=== PATIENT | male | born 1995 | race Caucasian/White ===

== ENCOUNTER 2023-01-23 23:26 | Emergency (ER) | payer SELFPAY ==
[2023-01-23 23:32] VITALS: BP 122/79; PULSE 88; RESP 14; TEMP 36.7; O2SAT 95; BMI 27.5
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
[2023-01-24] MEDS: tetanus-dipt-pertussis 0.5 mL SDV IM (00:10)
[2023-01-24] MEDS: amoxicillin-clav 875-125 mg Tablet 1 TAB PO (00:15)
[2023-01-24] MEDS: lidocaine 1% INJ 10 mL (per mL) INJECTION (00:19)
[2023-01-24] MEDS: bacitracin ointment Pkt 1 EACH TOPICAL (00:53)
[2023-01-24] MEDS: HYDROcodone-acetaminophen 5-325 mg Tablet 2 TAB PO (01:05)
[2023-01-24 01:08] VITALS: BP 152/91; PULSE 75; RESP 18; O2SAT 99
--- NOTE | 2023-01-24 08:14 | DCPLANNER ---
Addendum entered by Batsheva Emmanuel 02/05/23 08:15: Patient had a follow up appointment scheduled with ENT - patient did attend appointment. Addendum entered by Batsheva Emmanuel 02/02/23 11:29: Patient has a follow up appointment scheduled for Friday, February 03, 2023 at 12:[address] Johnson at ENT. Addendum entered by Batsheva Emmanuel 01/31/23 10:38: field party manager received the following message from ENT regarding follow up appointment: shashi Original Note: field party manager had message to schedule a follow up appointment for patient with ENT. field party manager sent patients information to the front office staff at ENT. Patients information will be printed and reviewed. Clinic will call patient with appointment information.
--- NOTE | 2023-01-24 08:52 | DCPLANNER ---
guest house manager called patient due to no primary care physician - no answer at this time.
== END 2023-01-24 01:11 | disposition home or self-care (01) ==
PROVIDERS: Emergency Provider Nurse Practitioner Family
DX: S01.312A Laceration without foreign body of left ear, initial encounter (principal); S01.01XA Laceration without foreign body of scalp, initial encounter; Y04.1XXA Assault by human bite, initial encounter
CPT/HCPCS: 90471; 90715; 99284

== ENCOUNTER 2024-02-27 17:14 | Emergency (ER) | payer MEDICAID, SELFPAY ==
[2024-02-27 17:15] VITALS: BP 135/87; PULSE 79; RESP 14; TEMP 36.9; O2SAT 97
--- NOTE | 2024-02-27 17:31 | ED_ITS ---
Documented by User: [email or web address] Estrada 02/27/24 23:54 HPI - Dental/Oral General: Chief complaint: Dental/Oral Stated complaint: Left side tooth pain Time Seen by Provider: 02/27/24 17:17 Source: patient Mode of arrival: ambulatory Limitations: no limitations History of Present Illness: Patient is a 28-year-old male who presents to the emergency department complaining of left upper dental pain onset 3 days. Patient reports history of multiple caries and dental abscess, states this feels identical. He has a dentist appointment scheduled for the end of the month but states that the pain is too severe to make it there. Pain is worsened by cold liquids and palpation of the face. Also made worse by chewing. Pain has been constant and is noted to be severe. He has not tried any pain medications at home at this time. No other symptoms or concerning historical factors noted at this time. MD Complaint: tooth pain Onset (ago): day(s) Duration: constant Severity: severe Relieving factors: nothing Exacerbating factors: chewing and cold Context: history of dental caries and poor dental care Associated symptoms: Denies ear or mastoid pain or fever(s) Review of Systems General: Reports: 10 or more systems reviewed and unremarkable except in HPI and below Const: Denies: fever(s), chills or fatigue Eyes: Denies: change in vision ENMT: Reports: dental pain; Denies: throat pain, ear or mastoid pain or nasal discharge Card: Denies: chest pain, palpitations, swelling of feet/ankles or lightheadedness Resp: Denies: dyspnea, productive cough or wheezing GI: Denies: abdominal pain, nausea, vomiting, diarrhea or constipation : Denies: flank pain, difficulty urinating, dysuria or urinary frequency Musc: Denies: neck pain, back pain or joint pain Skin/Breast: Denies: rash Neuro: Denies: headache(s), numbness in extremities or weakness in extremities PFSH ED PFSH: Surgical History Hx of appendectomy Physical Exam Const: COMMON NORMALS: no acute distress and no limitations GENERAL APPEARANCE: cooperative, comfortable and well developed ORIENTAT ION/CONSCIOUSNESS: Yes awake HENMT: COMMON NORMALS: normocephalic, atraumatic and hearing grossly normal bilaterally HEAD & SCALP: normocephalic and atraumatic TEETH & GINGIVA: Yes abnormal tooth and associated gingiva upper left tender and with associated gingival edema, Yes caries, Yes multiple restorations and Yes poor dentition OTHER: Reproducible tenderness to palpation of patient's left maxillary region, no significant edema noted Eye: COMMON NORMALS: Equal, round and reactive pupils present, EOMs intact bilaterally and conjunctivae normal CONJUNCTIVA: Yes conjunctivae normal PUPIL: Yes Equal, round and reactive pupils present Neck/C-Spine: COMMON NORMALS: full ROM, supple and no JVD Resp: COMMON NORMALS: normal respiratory effort, No retractions, No use of accessory muscles and clear to auscultation bilaterally AUSCULTATION: clear to auscultation bilaterally Cardio: COMMON NORMALS: no JVD, regular rate, regular rhythm, No clicks present (Cardio), No murmurs present (Cardio) and No rub (Cardio) RATE: regular rate RHYTHM: regular rhythm Extremity: COMMON NORMALS: normal to inspection, full ROM and capillary refill normal Skin: COMMON NORMALS: no rashes or lesions noted GENERAL SKIN EXAM: no rashes or lesions noted Course Vital Signs: Vital signs: Vital Signs Temperature 98.4 F 02/27/24 17:15 Pulse Rate 79 02/27/24 17:15 Respiratory Rate 14 02/27/24 17:15 Blood Pressure 135/87 02/27/24 17:15 Pulse Oximetry 97 02/27/24 17:15 Oxygen Delivery Me thod Room Air 02/27/24 17:15 MDM - Dental/Oral Medical Decision Making Based on historical description and patient's clinical signs and symptoms, he does present with likely a dental abscess of the left upper dentition. Because of this he will be given a shot of Decadron and pain medication here in the emergency department and sent home with antibiotics and a short course of steroids. He does have follow-up with dentist already planned for the end of the month, and he is to monitor for any new or worsening symptoms and control his pain with alternating Tylenol and ibuprofen at home until then. Vitals were normal today as he was noted to be afebrile. No radiology studies performed this visit Discharge Plan Discharge Patient Disposition: Home Clinical Impression: Dental abscess Condition: Stable Prescriptions: New prednisone 20 mg tablet 60 mg PO ONCE 5 Days Qty: 15 0RF amoxicillin-pot clavulanate 875-125 mg tablet 1 tab PO BID 10 Days Qty: 20 0RF No Action cyclobenzaprine 10 mg tablet 10 mg PO TID PRN (Reason: muscle spasm) Qty: 20 0RF Discharge Orders: Discharge ED (Routine); Ordered 02/27/24 Ordered By: Luis Fernando Gomez Referrals: Ofelia Ellis MD [Primary Care Provider] - Discharge Diet: Usual diet Discharge Activity: Increase activity as tolerated Patient Instructions: Dental Abscess (ED), Pain Management Activity Restrictions/Additional Instructions: Take antibiotics and steroids at home. Tylenol and ibuprofen for pain. Keep follow-up with dentist in a couple weeks as planned. Monitor for any new or worsening symptoms and return for reevaluation. 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 [employer] Documented by User: Ming Romo DO 02/28/24 07:30 HPI - Dental/Oral General: Chief complaint: Dental/Oral Stated complaint: Left side tooth pain Time Seen by Provider: 02/27/24 17:17 [facility] ED PFSH: Surgical History Hx of appendectomy Course Vital Signs: Vital signs: Vital Signs Temperature 98.4 F 02/27/24 17:15 Pulse Rate 79 02/27/24 17:15 Respiratory Rate 14 02/27/24 17:15 Blood Pressure 135/87 02/27/24 17:15 Pulse Oximetry 97 02/27/24 17:15 Oxygen Delivery Me thod Room Air 02/27/24 17:15 MDM - Dental/Oral Medical Decision Making Based on historical description and patient's clinical signs and symptoms, he does present with likely a dental abscess of the left upper dentition. Because of this he will be given a shot of Decadron and pain medication here in the emergency department and sent home with antibiotics and a short course of steroids. He does have follow-up with dentist already planned for the end of the month, and he is to monitor for any new or worsening symptoms and control his pain with alternating Tylenol and ibuprofen at home until then. Vitals were normal today as he was noted to be afebrile. Chart reviewed Discharge Plan Discharge Patient Disposition: Home Clinical Impression: Dental abscess Condition: Stable Prescriptions: New prednisone 20 mg tablet 60 mg PO ONCE 5 Days Qty: 15 0RF amoxicillin-pot clavulanate 875-125 mg tablet 1 tab PO BID 10 Days Qty: 20 0RF No Action cyclobenzaprine 10 mg tablet 10 mg PO TID PRN (Reason: muscle spasm) Qty: 20 0RF Discharge Orders: Discharge ED (Routine); Ordered 02/27/24 Ordered By: Luis Fernando Gomez Referrals: Ofelia Ellis MD [Primary Care Provider] - Discharge Diet: Usual diet Discharge Activity: Increase activity as tolerated Patient Instructions: Dental Abscess (ED), Pain Management Activity Restrictions/Additional Instructions: Take antibiotics and steroids at home. Tylenol and ibuprofen for pain. Keep follow-up with dentist in a couple weeks as planned. Monitor for any new or worsening symptoms and return for reevaluation. 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
[2024-02-27] MEDS: HYDROcodone-acetaminophen 7.5-325 mg Tablet 1 TAB PO (17:39)
[2024-02-27] MEDS: dexamethasone 10 mg/mL INJ IM (17:40)
== END 2024-02-27 17:47 | disposition home or self-care (01) ==
PROVIDERS: Emergency Provider Physician Assistant; PCP Internal Medicine
DX: K04.7 Periapical abscess without sinus (principal)
CPT/HCPCS: 96372; 99284; J1100

== ENCOUNTER 2024-03-03 16:39 | Emergency (ER) | payer MEDICAID, SELFPAY ==
[2024-03-03 16:55] VITALS: BP 125/85; PULSE 86; RESP 14; TEMP 37; O2SAT 98; BMI 27.0
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
[2024-03-03] MEDS: HYDROcodone-acetaminophen 5-325 mg Tablet 1 TAB PO (18:35)
[2024-03-03 18:37] VITALS: BP 150/94; PULSE 83; RESP 17; O2SAT 98
[2024-03-03 20:00] VITALS: BP 137/87; PULSE 71; RESP 14; O2SAT 100
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
== END 2024-03-03 20:22 | disposition home or self-care (01) ==
PROVIDERS: Emergency Provider Emergency Medicine; PCP Internal Medicine
DX: S22.080A Wedge compression fracture of T11-T12 vertebra, initial encounter for closed fracture (principal); Z79.899 Other long term (current) drug therapy; V86.95XA Unspecified occupant of 3- or 4- wheeled all-terrain vehicle (ATV) injured in nontraffic accident, initial encounter
CPT/HCPCS: 72072; 72100; 99283